=== PATIENT | male | born 2005 | race Caucasian/White ===

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

== ENCOUNTER 2024-09-26 02:24 | Emergency (ER) | payer OTHER, MEDICAID ==
[~2024-09-26] VITALS: Ht 172.7 cm; Wt 80.0 kg
[2024-09-26] MEDS: ACETAMINOPHEN 325MG TABLET PO ONE (02:45)
[2024-09-26] MEDS ORDERED: ALBU90AE INH (04:04)
[2024-09-26] MEDS: ALBUTEROL (0.5%) 2.5MG/0.5ML NEB HHN ONE (05:05)
[2024-09-26 05:07] VITALS: PULSE 86; RESP 16; O2SAT 97
[2024-09-26 05:30] VITALS: BP 131/85; PULSE 74; RESP 16; TEMP 36.50292; O2SAT 98
== END 2024-09-26 06:30 | disposition home or self-care (01) ==
LOC: ER 02:24
DX: J45.901 Unspecified asthma with (acute) exacerbation (principal); Z00.00 Encounter for general adult medical examination without abnormal findings
CPT/HCPCS: 94640; 99283; Z7610 ×2

== ENCOUNTER 2024-11-20 15:24 | Emergency (ER) | payer MEDICAID, OTHER ==
[~2024-11-20] VITALS: Ht 175.3 cm; Wt 77.1 kg
[~2024-11-20 15:24] MED LIST changes: +ALBU90AE INH
[2024-11-20 16:38] VITALS: BP 130/82; PULSE 80; RESP 16; TEMP 98.1; O2SAT 98
== END 2024-11-20 16:08 | disposition left against medical advice (07) ==
LOC: ER 15:24
DX: R06.02 Shortness of breath (principal); Z53.21 Procedure and treatment not carried out due to patient leaving prior to being seen by health care provider

== ENCOUNTER 2024-11-22 23:51 | Emergency (ER) | payer OTHER ==
[~2024-11-22] VITALS: Ht 175.3 cm; Wt 78.0 kg
[2024-11-23 00:46] VITALS: O2SAT 99
[2024-11-23] MEDS ORDERED: ALBU18HF2 IH (02:52)
[2024-11-23] MEDS ORDERED: IBUP-2028 MT (03:45)
[2024-11-23] MEDS: ACETAMINOPHEN 325MG TABLET PO ONE (04:27)
[2024-11-23 04:39] VITALS: BP 126/77; PULSE 87; RESP 16; TEMP 36.66960; O2SAT 99
== END 2024-11-23 04:41 | disposition home or self-care (01) ==
LOC: ER 23:51
DX: M25.511 Pain in right shoulder (principal); J45.909 Unspecified asthma, uncomplicated; Z79.899 Other long term (current) drug therapy
CPT/HCPCS: 73030; 73560; 99284

== ENCOUNTER 2024-11-30 18:28 | Emergency (ER) | payer OTHER ==
[~2024-11-30 18:28] MED LIST changes: +ALBU18HF2 IH; +IBUP-2028 MT
[2024-11-30 18:40] VITALS: O2SAT 97
[2024-11-30] MEDS: DEXAMETHASONE 10 MG/ML VIAL PO ONE (21:00)
[2024-11-30 22:10] VITALS: PULSE 68; RESP 18
[2024-11-30] MEDS: IPRATROPIUM/ALBUTEROL 0.5-3(2.5)MG/3ML NEB HHN ONE (22:10)
[2024-11-30] MEDS ORDERED: P50 MT (22:37)
[2024-11-30] MEDS ORDERED: ALBU18HF2 IH (22:37)
== END 2024-11-30 23:01 | disposition home or self-care (01) ==
LOC: ER 18:28
DX: J45.901 Unspecified asthma with (acute) exacerbation (principal); Z76.0 Encounter for issue of repeat prescription; Z79.52 Long term (current) use of systemic steroids
CPT/HCPCS: 94640; 99283; J1100; Z7610 ×3

== ENCOUNTER 2024-12-09 21:30 | Emergency (ER) | payer OTHER ==
[~2024-12-09] VITALS: Ht 170.2 cm; Wt 82.0 kg
[~2024-12-09 21:30] MED LIST changes: +P50 MT
[2024-12-10 01:17] VITALS: PULSE 90; RESP 20; O2SAT 99
[2024-12-10] MEDS: IPRATROPIUM/ALBUTEROL 0.5-3(2.5)MG/3ML NEB HHN ONE (01:17)
[2024-12-10] MEDS ORDERED: PRED5TAB MT (01:18)
[2024-12-10 02:15] VITALS: BP 135/76; PULSE 85; RESP 16; TEMP 36.94740; O2SAT 100
[2024-12-11] MEDS ORDERED: ALBU90AE INH (03:42)
== END 2024-12-10 02:19 | disposition home or self-care (01) ==
LOC: ER 21:30
DX: J45.901 Unspecified asthma with (acute) exacerbation (principal); M79.604 Pain in right leg; Z76.0 Encounter for issue of repeat prescription; Z79.52 Long term (current) use of systemic steroids
CPT/HCPCS: 73560; 99283; 94640; Z7610 ×3

== ENCOUNTER 2024-12-11 01:55 | Emergency (ER) | payer OTHER ==
[~2024-12-11] VITALS: Ht 172.7 cm; Wt 82.2 kg
[~2024-12-11 01:55] MED LIST changes: +PRED5TAB MT
[2024-12-11 02:14] VITALS: O2SAT 100
[2024-12-11] MEDS ORDERED: ALBU90AE INH (03:42)
[2024-12-11 03:45] VITALS: BP 131/69; PULSE 92; RESP 18; TEMP 37.28076; O2SAT 100
== END 2024-12-11 03:50 | disposition home or self-care (01) ==
LOC: ER 01:55
DX: M25.569 Pain in unspecified knee (principal); Z76.0 Encounter for issue of repeat prescription; Z79.899 Other long term (current) drug therapy
CPT/HCPCS: 99281

== ENCOUNTER 2024-12-15 23:41 | Emergency (ER) | payer OTHER ==
[~2024-12-15] VITALS: Ht 182.9 cm; Wt 77.9 kg
[2024-12-15 23:48] VITALS: O2SAT 99
[2024-12-15 23:53] VITALS: BP 146/89; TEMP 37
[2024-12-16] MEDS: IPRATROPIUM/ALBUTEROL 0.5-3(2.5)MG/3ML NEB HHN ONE (03:33)
[2024-12-16 03:34] VITALS: PULSE 72; RESP 20; O2SAT 95
[2024-12-16] MEDS: METHYLPREDNISOLONE 40MG/ML INJ IV ONE (05:49)
[2024-12-16] MEDS: DEXAMETHASONE 10 MG/ML VIAL PO ONE (05:54)
== END 2024-12-16 07:58 | disposition home or self-care (01) ==
LOC: ER 23:49
DX: J45.901 Unspecified asthma with (acute) exacerbation (principal); Z79.52 Long term (current) use of systemic steroids
CPT/HCPCS: 99283; 94640; J1100; J2920; Z7610 ×3

== ENCOUNTER 2024-12-24 02:34 | Emergency (ER) | payer OTHER ==
[2024-12-24 02:48] VITALS: PULSE 88; O2SAT 98
[2024-12-24] MEDS ORDERED: ALBU18HF2 IH (04:34)
== END 2024-12-24 05:42 | disposition home or self-care (01) ==
LOC: ER 02:34
DX: Z76.0 Encounter for issue of repeat prescription (principal); Z79.899 Other long term (current) drug therapy
CPT/HCPCS: 99281

== ENCOUNTER 2024-12-31 00:27 | Emergency (ER) | payer OTHER ==
[~2024-12-31] VITALS: Ht 175.3 cm; Wt 79.3 kg
[2024-12-31 00:37] VITALS: O2SAT 100
[2024-12-31] MEDS: ACETAMINOPHEN 500MG TABLET PO ONE (02:34)
[2024-12-31 03:39] LABS: BASOPHILS % 0.3 % (0.0-2.0); EOSINOPHILS % 3.2 % (0.0-5.0); HEMATOCRIT. 40.9 % (42.0-52.0); HEMOGLOBIN. 14.1 g/dL (14.0-18.0); LYMPHOCYTES % 38.5 % (20.0-50.0); MEAN CORPUSCULAR HEMOGLOBIN 31.7 pg (28.0-32.0); MEAN CORPUSCULAR HGB CONC 34.3 g/dL (31.0-37.0); MEAN CORPUSCULAR VOLUME 92.2 fL (80.0-94.0); MEAN PLATELET VOLUME 9.8 fl (7.4-10.4); MONOCYTES % 6.4 % (2.0-8.0); NEUTROPHILS % 51.6 % (40.0-76.0); PLATELET 185 x1000/uL (130-400); RED BLOOD CELL COUNT 4.44 mill/uL (4.7-6.1); RED CELL DISTRIBUTION WIDTH 14.3 % (11.6-14.6); WHITE BLOOD COUNT 8.8 x1000/uL (4.5-11.0)
[2024-12-31 04:21] LABS: CALCIUM 9.7 mg/dL (8.7-10.4); CHLORIDE 103 mEq/L (98-107); POTASSIUM 3.9 mEq/L (3.5-5.1); SODIUM 140 mEq/L (136-145)
[2024-12-31 04:22] LABS: CARBON DIOXIDE 27 mEq/L (21-32)
[2024-12-31 04:27] LABS: CREATININE 0.7 mg/dL (0.6-1.3); GLUCOSE 96 mg/dL (70-105); UREA NITROGEN BLOOD 10 mg/dL (9-23)
[2024-12-31 04:28] LABS: TROPONIN I HIGH SENSITIVITY < 4 ng/L (3.0-53)
[2024-12-31] MEDS ORDERED: NAPR-1176 MT (04:33)
[2024-12-31 04:53] VITALS: BP 136/90; PULSE 93; RESP 18; TEMP 36.8; O2SAT 100
== END 2024-12-31 04:57 | disposition home or self-care (01) ==
LOC: ER 00:27
DX: R07.89 Other chest pain (principal); J45.901 Unspecified asthma with (acute) exacerbation; Z79.899 Other long term (current) drug therapy
CPT/HCPCS: 36415; 71045; 80048; 84484; 85025; 93005; 99285

== ENCOUNTER 2025-01-08 03:27 | Emergency (ER) | payer OTHER ==
[~2025-01-08] VITALS: Ht 175.3 cm; Wt 82.0 kg
[~2025-01-08 03:27] MED LIST changes: +NAPR-1176 MT
[2025-01-08 03:36] VITALS: BP 128/79; TEMP 36.9
[2025-01-08] MEDS ORDERED: ALBU18HF2 IH (04:01)
[2025-01-08] MEDS: IBUPROFEN 600MG TABLET PO ONE (04:06)
[2025-01-08 04:22] VITALS: PULSE 92; RESP 18; O2SAT 97
[2025-01-08] MEDS: ALBUTEROL (0.083%) 2.5MG/3ML NEB HHN ONE (04:22)
== END 2025-01-08 04:39 | disposition home or self-care (01) ==
LOC: ER 03:27
DX: R07.89 Other chest pain (principal); Z76.0 Encounter for issue of repeat prescription; Z79.899 Other long term (current) drug therapy
CPT/HCPCS: 71045; 94640; 93005; 99283; Z7610 ×3

== ENCOUNTER 2025-01-13 14:17 | Emergency (ER) | payer OTHER ==
[~2025-01-13] VITALS: Ht 175.3 cm; Wt 80.0 kg
[2025-01-13 14:25] VITALS: O2SAT 99
[2025-01-13 14:34] VITALS: BP 142/101; PULSE 100; RESP 12; TEMP 36.4; O2SAT 97
== END 2025-01-13 18:55 | disposition left against medical advice (07) ==
LOC: ER 14:17
DX: R10.84 Generalized abdominal pain (principal); J45.909 Unspecified asthma, uncomplicated; Z53.21 Procedure and treatment not carried out due to patient leaving prior to being seen by health care provider

== ENCOUNTER 2025-01-15 01:20 | Emergency (ER) | payer OTHER ==
[~2025-01-15] VITALS: Ht 175.3 cm; Wt 60.0 kg
[2025-01-15 01:32] VITALS: BP 141/88; TEMP 36.8; O2SAT 100
[2025-01-15 01:33] VITALS: PULSE 101; RESP 18; O2SAT 98
[2025-01-15] MEDS ORDERED: ALBU18HF2 IH (03:06)
== END 2025-01-15 03:14 | disposition home or self-care (01) ==
LOC: ER 01:20
DX: Z76.0 Encounter for issue of repeat prescription (principal); J45.909 Unspecified asthma, uncomplicated; Z79.899 Other long term (current) drug therapy
CPT/HCPCS: 99281

== ENCOUNTER 2025-02-04 12:10 | Emergency (ER) | payer OTHER ==
[~2025-02-04] VITALS: Ht 172.7 cm; Wt 83.5 kg
[2025-02-04 12:12] VITALS: BP 138/71; PULSE 82; RESP 16; TEMP 36.7; O2SAT 99
[2025-02-04 12:13] VITALS: O2SAT 99
== END 2025-02-04 12:56 | disposition left against medical advice (07) ==
LOC: ER 12:18
DX: J45.909 Unspecified asthma, uncomplicated (principal); Z79.52 Long term (current) use of systemic steroids; Z79.1 Long term (current) use of non-steroidal anti-inflammatories (NSAID); Z79.899 Other long term (current) drug therapy; R45.1 Restlessness and agitation
CPT/HCPCS: 99281

== ENCOUNTER 2025-06-25 14:58 | Emergency (ER) | payer OTHER ==
[~2025-06-25] VITALS: Ht 180.3 cm; Wt 84.0 kg
[2025-06-25 15:03] VITALS: O2SAT 99
[2025-06-25 15:08] VITALS: BP 147/93; PULSE 92; RESP 16; TEMP 36.6; O2SAT 99
[2025-06-25] MEDS ORDERED: ALBU18HF2 IH (17:44)
== END 2025-06-25 17:51 | disposition home or self-care (01) ==
LOC: ER 14:58
DX: J45.20 Mild intermittent asthma, uncomplicated (principal); Z76.0 Encounter for issue of repeat prescription; Z79.899 Other long term (current) drug therapy
CPT/HCPCS: 99281; 99282

== ENCOUNTER 2025-07-04 15:38 | Emergency (ER) | payer OTHER ==
[~2025-07-04] VITALS: Ht 182.9 cm; Wt 82.0 kg
[2025-07-04 15:42] VITALS: BP 128/68; PULSE 89; RESP 20; TEMP 36.9; O2SAT 98; O2SAT 99
[2025-07-04] MEDS ORDERED: ALBU90AE INH (15:48)
== END 2025-07-04 16:25 | disposition home or self-care (01) ==
LOC: ER 16:21
DX: J45.909 Unspecified asthma, uncomplicated (principal); Z76.0 Encounter for issue of repeat prescription
CPT/HCPCS: 99281; 99282

== ENCOUNTER 2025-07-19 14:26 | Emergency (ER) | payer OTHER ==
[~2025-07-19] VITALS: Ht 175.3 cm; Wt 82.0 kg
[2025-07-19 14:27] VITALS: O2SAT 99
[2025-07-19] MEDS ORDERED: ALBU18HF2 IH (16:01)
[2025-07-19 16:10] VITALS: BP 150/89; PULSE 80; RESP 18; TEMP 36.7; O2SAT 99
== END 2025-07-19 16:11 | disposition home or self-care (01) ==
LOC: ER 14:26
DX: J45.909 Unspecified asthma, uncomplicated (principal); Z76.0 Encounter for issue of repeat prescription; Z79.1 Long term (current) use of non-steroidal anti-inflammatories (NSAID); Z79.52 Long term (current) use of systemic steroids
CPT/HCPCS: 99281; 99282

== ENCOUNTER 2025-08-16 13:06 | Emergency (ER) | payer OTHER ==
[~2025-08-16] VITALS: Ht 182.9 cm; Wt 91.0 kg
[2025-08-16 13:10] VITALS: BP 133/106; TEMP 37.1; O2SAT 100
[2025-08-16 13:13] VITALS: PULSE 89; RESP 18; O2SAT 99
[2025-08-16] MEDS ORDERED: ALBU18HF2 IH (14:08)
== END 2025-08-16 14:19 | disposition home or self-care (01) ==
LOC: ER 13:06
DX: J45.909 Unspecified asthma, uncomplicated (principal); Z76.0 Encounter for issue of repeat prescription; Z79.899 Other long term (current) drug therapy
CPT/HCPCS: 99281; 99282

== ENCOUNTER 2025-08-31 14:38 | Emergency (ER) | payer OTHER ==
[~2025-08-31] VITALS: Ht 172.7 cm; Wt 82.0 kg
[2025-08-31 14:41] VITALS: O2SAT 98
[2025-08-31 14:57] VITALS: BP 168/105; PULSE 100; RESP 16; TEMP 36.8; O2SAT 95
== END 2025-08-31 16:18 | disposition home or self-care (01) ==
LOC: ER 14:38
DX: J45.909 Unspecified asthma, uncomplicated (principal)
CPT/HCPCS: 99281

== ENCOUNTER 2025-09-20 17:08 | Emergency (ER) | payer SELFPAY ==
[~2025-09-20] VITALS: Ht 175.3 cm; Wt 73.0 kg
[2025-09-20 17:10] VITALS: O2SAT 98
[2025-09-20] MEDS: ONDANSETRON HCL 4MG/2ML INJ IV ONE (18:18)
[2025-09-20] MEDS ORDERED: NALO4SPR BOTHNSTRLS (19:13)
[2025-09-20 19:35] VITALS: BP 140/72; PULSE 82; RESP 16; TEMP 36.7; O2SAT 96
== END 2025-09-20 19:58 | disposition home or self-care (01) ==
LOC: ER 17:08
DX: T40.2X1A Poisoning by other opioids, accidental (unintentional), initial encounter (principal); F17.200 Nicotine dependence, unspecified, uncomplicated; J45.909 Unspecified asthma, uncomplicated; Z79.1 Long term (current) use of non-steroidal anti-inflammatories (NSAID); Z79.52 Long term (current) use of systemic steroids; Z79.899 Other long term (current) drug therapy; Y92.89 Other specified places as the place of occurrence of the external cause
CPT/HCPCS: 71045; 93005; 96374; 99283; J2405; Z7610 ×2; A4606